=== PATIENT | male | born 1985 | race Caucasian/White ===

== ENCOUNTER 2019-08-05 12:49 | Outpatient (RCR) | payer MEDICAID, SELFPAY | END 2019-08-05 23:59 | disposition home or self-care (01) | LOC: ANHAUDIO 12:49 | DX: Z46.1 Encounter for fitting and adjustment of hearing aid (principal) | CPT/HCPCS: 99199 ==

== ENCOUNTER 2020-08-01 10:17 | Outpatient (RCR) | payer MEDICAID, SELFPAY | END 2020-08-01 23:59 | disposition home or self-care (01) | LOC: ANHAUDIO 10:17 | DX: Z46.1 Encounter for fitting and adjustment of hearing aid (principal) | CPT/HCPCS: 99199 ==

== ENCOUNTER 2021-04-19 14:48 | Outpatient (RCR) | payer MEDICAID, SELFPAY | END 2021-04-19 23:59 | disposition home or self-care (01) | LOC: ANHAUDIO 14:48 | DX: Z46.1 Encounter for fitting and adjustment of hearing aid (principal) | CPT/HCPCS: 99199; V5014 ==

== ENCOUNTER 2022-06-28 14:00 | Outpatient (RCR) | payer OTHER, SELFPAY | END 2022-06-28 23:59 | disposition home or self-care (01) | LOC: ANHAUDIO 14:00 | DX: Z46.1 Encounter for fitting and adjustment of hearing aid (principal) | CPT/HCPCS: 92593; 99199 ==

== ENCOUNTER 2024-07-03 11:00 | Outpatient (RCR) | payer SELFPAY | END 2024-07-03 23:59 | disposition home or self-care (01) | LOC: ANHAUDIO 11:00 | DX: Z46.1 Encounter for fitting and adjustment of hearing aid (principal) | CPT/HCPCS: 99199; V5014 ==